=== PATIENT | male | born 1955 | race Caucasian/White ===

== ENCOUNTER 2021-02-22 11:47 | Outpatient (CLI) | payer MEDICARE | END 2021-02-22 11:48 | disposition home or self-care (01) | LOC: BICRAD 11:47 | PROVIDERS: ATTEND Internal Medicine Critical Care Medicine | DX: R06.00 Dyspnea, unspecified (principal) | CPT/HCPCS: 71046 ==

== ENCOUNTER 2022-01-10 09:41 | Inpatient (IN) | payer MEDICARE ==
[2022-01-10 10:35] LABS: ALT (SGPT) 49 U/L (8-55); AST (SGOT) 39 U/L (5-34); Albumin 3.9 g/dL (3.4-4.8); Alkaline Phosphatase 220 U/L (40-110); Anion Gap 10 mmol/L (10-20); BUN (Urea Nitrogen) 14 mg/dL (8.4-25.7); Bilirubin, Total 1.7 mg/dL (0.2-1.2); Calc. Creatinine Clearance 0 mL/min (70-130); Calcium 9.1 mg/dL (7.8-10.44); Carbon Dioxide 26 mmol/L (23-31); Chloride 109 mmol/L (98-107); Estimated GFR 64; Globulin 2.8 g/dL (2.4-3.5); Glucose 93 mg/dL (80-115); Lipase 45 U/L (8-78); Potassium 4.1 mmol/L (3.5-5.1); Protein, Total 6.7 g/dL (5.8-8.1); Sodium 141 mmol/L (136-145)
[2022-01-10 10:40] LABS: #Basophils 0.1 thou/uL (0.0-0.2); #Eosinphils 0.3 thou/uL (0.0-0.7); #Lymphocytes 1.5 thou/uL (1.20-3.40); #Monocytes 0.7 thou/uL (0.11-0.59); #Neutrophils 3.7 thou/uL (1.40-6.50); %Basophils 1.1 % (0.0-1.0); %Eosinophils 4.2 % (0.0-10.0); %Lymphocytes 23.8 % (21.0-51.0); %Monocytes 10.8 % (0.0-10.0); %Neutrophils 60.2 % (42.0-75.0); Hemoglobin 12.2 g/dL (14.0-18.0); Mean Corpuscular HGB CONC 32.3 g/dL (32.0-36.0); Mean Corpuscular Hemoglobin 27.3 pg (27.0-31.0); Mean Corpuscular Volume 84.7 fL (78.0-98.0); Mean Platelet Volume 8.6 fL (7.4-10.4); Platelet Count 290 thou/uL (130-400); RBC Distribution Width 15.4 % (11.5-14.5); Red Blood Cell (RBC) Count 4.48 mill/uL (4.70-6.10); White Blood Cell (WBC) Count 6.2 thou/uL (4.8-10.8)
[2022-01-10] MEDS ORDERED: Aspirin Chewable 81 MG TAB ONE (10:40)
[2022-01-10] MEDS ORDERED: Diltiazem 125 MG/25 ML ONE (10:40)
[2022-01-10] MEDS ORDERED: Heparin 10,000 UNITS/ 10 ML VIAL ONE (10:40)
[2022-01-10] MEDS ORDERED: Heparin 25,000 units/D5W 500 ML ONE (10:41)
[2022-01-10] MEDS ORDERED: Heparin 25,000 units/D5W 500 ML IV SCH (10:45)
[2022-01-10] MEDS ORDERED: Heparin 10,000 UNITS/ 10 ML VIAL SLOW IVP SCH (10:45)
[2022-01-10 13:37] LABS: SARS-CoV-2 NAA Rapid Test Not Detected (NotDetected)
[2022-01-10] MEDS ORDERED: Acetaminophen 650 MG Suppository PR PRN (13:42)
[2022-01-10] MEDS ORDERED: Ondansetron PF 4 MG/2 ML Vial IVP PRN (13:42)
[2022-01-10] MEDS ORDERED: Ondansetron ODT 4 MG TAB PO PRN (13:42)
[2022-01-10 13:47] LABS: Troponin I 0.036 ng/mL (< 0.028)
[2022-01-10] MEDS ORDERED: Diltiazem 125 MG in Sodium Chloride 0.9% 100 ML IVPB SCH ×2 (14:00→15:30)
[2022-01-10 17:41] VITALS: BMI 24.3
[2022-01-10 18:30] LABS: Troponin I 0.024 ng/mL (< 0.028)
[2022-01-10] MEDS: Atorvastatin Calcium 40 MG TAB PO SCH (20:40)
[2022-01-10] MEDS ORDERED: Melatonin 3 MG TAB PO PRN (21:07)
[2022-01-10] MEDS: Acetaminophen 325 MG TAB PO PRN (23:26)
[2022-01-10] MEDS ORDERED: Diltiazem HCl 125 MG in Premix Bag 1 BAG IVPB SCH (23:45)
[2022-01-11 04:30] LABS: #Neutrophils 3.6 thou/uL (1.40-6.50); %Basophils 0.9 % (0.0-1.0); %Eosinophils 4.6 % (0.0-10.0); %Neutrophils 58.6 % (42.0-75.0); Hemoglobin 10.6 g/dL (14.0-18.0); Mean Corpuscular HGB CONC 31.3 g/dL (32.0-36.0); Mean Corpuscular Hemoglobin 27.3 pg (27.0-31.0); Mean Platelet Volume 9.3 fL (7.4-10.4); Platelet Count 232 thou/uL (130-400); RBC Distribution Width 15.7 % (11.5-14.5); Red Blood Cell (RBC) Count 3.91 mill/uL (4.70-6.10); White Blood Cell (WBC) Count 6.2 thou/uL (4.8-10.8)
[2022-01-11 04:31] LABS: #Basophils 0.1 thou/uL (0.0-0.2); #Eosinphils 0.3 thou/uL (0.0-0.7); #Lymphocytes 1.6 thou/uL (1.20-3.40); #Monocytes 0.6 thou/uL (0.11-0.59)
[2022-01-11 05:03] LABS: Anion Gap 13 mmol/L (10-20); BUN (Urea Nitrogen) 12 mg/dL (8.4-25.7); Calc. Creatinine Clearance 83 mL/min (70-130); Calcium 8.5 mg/dL (7.8-10.44); Carbon Dioxide 20 mmol/L (23-31); Chloride 110 mmol/L (98-107); Estimated GFR 88; Glucose 99 mg/dL (80-115); Magnesium 2.1 mg/dL (1.6-2.6); Potassium 3.4 mmol/L (3.5-5.1); Sodium 140 mmol/L (136-145)
[2022-01-11] MEDS: Acetaminophen 325 MG TAB PO PRN ×2 (09:55→19:28)
[2022-01-11] MEDS ORDERED: Potassium Chloride 20 MEQ TAB PO SCH (11:00)
[2022-01-11 16:59] LABS: INR-International Normal Ratio 1.1; Prothrombin Time 14.4 sec (12.0-14.7)
[2022-01-11 17:00] LABS: PTT 68.9 sec (22.9-36.1)
[2022-01-11] MEDS: Atorvastatin Calcium 40 MG TAB PO SCH (20:32)
[2022-01-11] MEDS: Apixaban 5 MG TAB PO SCH (20:33)
[2022-01-11] MEDS ORDERED: Melatonin 3 MG TAB PO SCH (21:00)
[2022-01-11] MEDS ORDERED: Flecainide 50 MG TAB PO SCH ×2 (21:00)
[2022-01-12] MEDS ORDERED: Melatonin 3 MG TAB ONE (04:21)
[2022-01-12 06:46] LABS: #Eosinphils 0.2 thou/uL (0.0-0.7); #Lymphocytes 0.9 thou/uL (1.20-3.40); #Monocytes 0.7 thou/uL (0.11-0.59); #Neutrophils 4.4 thou/uL (1.40-6.50); %Basophils 0.4 % (0.0-1.0); %Eosinophils 3.7 % (0.0-10.0); %Lymphocytes 14.6 % (21.0-51.0); %Neutrophils 70.3 % (42.0-75.0); Hemoglobin 10.7 g/dL (14.0-18.0); Mean Corpuscular HGB CONC 32.2 g/dL (32.0-36.0); Mean Platelet Volume 9.2 fL (7.4-10.4); Platelet Count 231 thou/uL (130-400); RBC Distribution Width 15.6 % (11.5-14.5); Red Blood Cell (RBC) Count 3.97 mill/uL (4.70-6.10); White Blood Cell (WBC) Count 6.2 thou/uL (4.8-10.8)
[2022-01-12 06:47] LABS: Anion Gap 15 mmol/L (10-20); BUN (Urea Nitrogen) 11 mg/dL (8.4-25.7); Calc. Creatinine Clearance 75 mL/min (70-130); Calcium 8.9 mg/dL (7.8-10.44); Carbon Dioxide 20 mmol/L (23-31); Chloride 108 mmol/L (98-107); Estimated GFR 78; Glucose 101 mg/dL (80-115); Potassium 3.7 mmol/L (3.5-5.1); Sodium 139 mmol/L (136-145)
[2022-01-12] MEDS ORDERED: Dronedarone HCl 400 MG TAB PO SCH (08:00)
[2022-01-12 08:10] VITALS: BP 133/79; TEMP 97.7
[2022-01-12] MEDS: Apixaban 5 MG TAB PO SCH (09:21)
== END 2022-01-12 12:18 | disposition home or self-care (01) | DRG 310 ==
LOC: ERS 09:41 → ERHOLD 12:15 → 2NO 16:41
PROVIDERS: ADMIT Internal Medicine; ATTEND Internal Medicine
PROC: B24BZZ4 Ultrasonography of Heart with Aorta, Transesophageal (ICD-10-PCS; principal; 2022-01-11)
DX: I48.91 Unspecified atrial fibrillation (principal); Z20.822 Contact with and (suspected) exposure to COVID-19; R79.89 Other specified abnormal findings of blood chemistry; M34.1 CR(E)ST syndrome; I10 Essential (primary) hypertension; E78.5 Hyperlipidemia, unspecified; D50.9 Iron deficiency anemia, unspecified; E78.00 Pure hypercholesterolemia, unspecified; I34.0 Nonrheumatic mitral (valve) insufficiency; I25.10 Atherosclerotic heart disease of native coronary artery without angina pectoris; Z82.49 Family history of ischemic heart disease and other diseases of the circulatory system; Z79.899 Other long term (current) drug therapy
CPT/HCPCS: 36415; 71045; 80048; 80053; 82553; 83690; 83735; 83880; 84443; 84484; 85025; 85379; 85610; 85730; 93005; 93306; 94760; 96365; 96366; 96376; J1642; J1644; U0002

== ENCOUNTER 2023-04-06 05:46 | Day surgery (SDC) | payer MEDICARE ==
[2023-03-22 11:56] VITALS: BMI 25.0
[2023-04-06] MEDS ORDERED: Propofol 500 MG/50 ML VIAL ONE (06:59)
[2023-04-06] MEDS ORDERED: fentaNYL 50 mcg/mL 1 mL Vial ONE (06:59)
[2023-04-06] MEDS ORDERED: Sodium Chloride 0.9% 100 ML ONE (07:36)
[2023-04-06] MEDS ORDERED: cefTRIAXone (ROCEPHIN) 1 GM VIAL ONE (07:36)
[2023-04-06] MEDS ORDERED: Acetaminophen 500 MG TAB ONE (08:51)
== END 2023-04-06 09:48 | disposition home or self-care (01) ==
LOC: SDC 05:46
PROVIDERS: ATTEND Urology
PROC: 0VB03ZX Excision of Prostate, Percutaneous Approach, Diagnostic (ICD-10-PCS; principal; 2023-04-06)
DX: C61 Malignant neoplasm of prostate (principal); N40.0 Benign prostatic hyperplasia without lower urinary tract symptoms; R97.20 Elevated prostate specific antigen [PSA]; I48.91 Unspecified atrial fibrillation; I10 Essential (primary) hypertension; E78.5 Hyperlipidemia, unspecified; M34.1 CR(E)ST syndrome; I25.10 Atherosclerotic heart disease of native coronary artery without angina pectoris
CPT/HCPCS: 55700; J3010; G0416; J0696; J2704; J3490

== ENCOUNTER 2023-11-25 13:15 | Inpatient (IN) | payer MEDICARE ==
[2023-11-25] MEDS ORDERED: dilTIAZem 25 MG/5 ML VIAL ONE ×2 (13:39→14:33)
[2023-11-25] MEDS ORDERED: dilTIAZem 125 MG/25 ML SDV ONE (13:39)
[2023-11-25] MEDS ORDERED: Sodium Chloride 0.9% 100 ML ONE (13:40)
[2023-11-25 14:41] LABS: #Basophils 0.04 10x3/uL (0.0-0.2); %Basophils 0.5 % (0.0-1.0); %Eosinophils 4.8 % (0.0-10.0); %Lymphocytes 17.9 % (21.0-51.0); %Monocytes 8.6 % (0.0-10.0); %Neutrophils 67.5 % (42.0-75.0); Hematocrit 41.8 % (42.0-52.0); Hemoglobin 14.4 g/dL (14.0-18.0); Mean Corpuscular HGB CONC 34.4 g/dL (32.0-36.0); Mean Corpuscular Hemoglobin 30.3 pg (27.0-31.0); Mean Corpuscular Volume 87.8 fL (78.0-98.0); Mean Platelet Volume 10.4 fL (7.4-10.4); Platelet Count 299 10x3/uL (130-400); RBC Distribution Width 14.1 % (11.5-14.5); Red Blood Cell (RBC) Count 4.76 mill/uL (4.70-6.10)
[2023-11-25 14:56] LABS: Troponin I Less than 0.010 ng/mL (< 0.028)
[2023-11-25 14:57] LABS: ALT (SGPT) 89 U/L (8-55); AST (SGOT) 81 U/L (5-34); Albumin 3.9 g/dL (3.4-4.8); Alkaline Phosphatase 257 U/L (40-110); Anion Gap 15 mmol/L (10-20); BUN (Urea Nitrogen) 16 mg/dL (8.4-25.7); Bilirubin, Total 1.8 mg/dL (0.2-1.2); Calc. Creatinine Clearance 0 mL/min (70-130); Calcium 9.8 mg/dL (7.8-10.44); Carbon Dioxide 21 mmol/L (23-31); Chloride 106 mmol/L (98-107); Estimated GFR 73; Globulin 3.2 g/dL (2.4-3.5); Glucose 96 mg/dL (80-115); Potassium 3.3 mmol/L (3.5-5.1); Protein, Total 7.1 g/dL (5.8-8.1); Sodium 139 mmol/L (136-145)
[2023-11-25] MEDS ORDERED: Senokot S 8.6-50 MG TAB PO PRN (15:50)
[2023-11-25] MEDS ORDERED: Ondansetron PF 4 MG/2 ML Vial IVP PRN (15:50)
[2023-11-25] MEDS ORDERED: Calcium Carbonate 500 MG ChewTAB PO PRN (15:50)
[2023-11-25] MEDS ORDERED: Potassium Chloride 20 MEQ TAB ONE (16:17)
[2023-11-25 17:46] VITALS: BMI 24.0
[2023-11-25] MEDS: Enoxaparin 80 MG (0.8 mL) SYRINGE SC SCH (18:02)
[2023-11-25 21:06] LABS: Troponin I 0.085 ng/mL (< 0.028)
[2023-11-25 21:58] LABS: Magnesium 2.1 mg/dL (1.6-2.6); Potassium 3.7 mmol/L (3.5-5.1)
[2023-11-25] MEDS: Flecainide 50 MG TAB PO SCH (22:03)
[2023-11-25] MEDS: Atorvastatin Calcium 40 MG TAB PO SCH (22:04)
[2023-11-25] MEDS: Melatonin 3 MG TAB PO PRN (22:19)
[2023-11-25] MEDS: Acetaminophen 325 MG TAB PO PRN (23:57)
[2023-11-26 00:31] LABS: Troponin I 0.065 ng/mL (< 0.028)
[2023-11-26 05:39] LABS: #Basophils Less than 0.03 10x3/uL (0.0-0.2); %Basophils 0.3 % (0.0-1.0); %Eosinophils 5.5 % (0.0-10.0); %Lymphocytes 21.7 % (21.0-51.0); %Monocytes 7.7 % (0.0-10.0); %Neutrophils 64.3 % (42.0-75.0); Hemoglobin 13.8 g/dL (14.0-18.0); Mean Corpuscular HGB CONC 34.5 g/dL (32.0-36.0); Mean Corpuscular Hemoglobin 30.9 pg (27.0-31.0); Mean Corpuscular Volume 89.5 fL (78.0-98.0); Mean Platelet Volume 10.1 fL (7.4-10.4); Platelet Count 282 10x3/uL (130-400); RBC Distribution Width 14.1 % (11.5-14.5); Red Blood Cell (RBC) Count 4.47 mill/uL (4.70-6.10)
[2023-11-26 06:08] LABS: ALT (SGPT) 87 U/L (8-55); AST (SGOT) 65 U/L (5-34); Albumin 3.4 g/dL (3.4-4.8); Alkaline Phosphatase 245 U/L (40-110); Anion Gap 13 mmol/L (10-20); BUN (Urea Nitrogen) 13 mg/dL (8.4-25.7); Bilirubin, Total 1.4 mg/dL (0.2-1.2); Calc. Creatinine Clearance 88 mL/min (70-130); Calcium 8.6 mg/dL (7.8-10.44); Carbon Dioxide 22 mmol/L (23-31); Chloride 110 mmol/L (98-107); Estimated GFR 93; Globulin 2.7 g/dL (2.4-3.5); Glucose 97 mg/dL (80-115); Potassium 3.5 mmol/L (3.5-5.1); Protein, Total 6.1 g/dL (5.8-8.1); Sodium 141 mmol/L (136-145)
[2023-11-26] MEDS: Enoxaparin 80 MG (0.8 mL) SYRINGE SC SCH (08:14)
[2023-11-26] MEDS: Pantoprazole DR 40 MG TAB PO SCH (08:14)
[2023-11-26] MEDS: Loratadine 10 MG TAB PO SCH (08:14)
[2023-11-26] MEDS: dilTIAZem 125 MG in Sodium Chloride 0.9% 100 ML IVPB SCH (10:28)
[2023-11-26] MEDS ORDERED: Melatonin 3 MG TAB PO PRN (20:33)
[2023-11-26] MEDS: traZODone HCl 50 MG TAB PO PRN (21:37)
[2023-11-27 05:34] LABS: #Basophils 0.03 10x3/uL (0.0-0.2); %Basophils 0.4 % (0.0-1.0); %Eosinophils 5.1 % (0.0-10.0); %Lymphocytes 27.4 % (21.0-51.0); %Monocytes 9.2 % (0.0-10.0); %Neutrophils 57.5 % (42.0-75.0); Hematocrit 42.5 % (42.0-52.0); Hemoglobin 14.2 g/dL (14.0-18.0); Mean Corpuscular HGB CONC 33.4 g/dL (32.0-36.0); Mean Corpuscular Hemoglobin 30.7 pg (27.0-31.0); Mean Corpuscular Volume 91.8 fL (78.0-98.0); Mean Platelet Volume 9.9 fL (7.4-10.4); Platelet Count 277 10x3/uL (130-400); RBC Distribution Width 14.4 % (11.5-14.5); Red Blood Cell (RBC) Count 4.63 mill/uL (4.70-6.10)
[2023-11-27 06:02] LABS: ALT (SGPT) 79 U/L (8-55); AST (SGOT) 60 U/L (5-34); Albumin 3.3 g/dL (3.4-4.8); Alkaline Phosphatase 235 U/L (40-110); Anion Gap 13 mmol/L (10-20); BUN (Urea Nitrogen) 14 mg/dL (8.4-25.7); Bilirubin, Total 1.3 mg/dL (0.2-1.2); Calc. Creatinine Clearance 85 mL/min (70-130); Carbon Dioxide 19 mmol/L (23-31); Chloride 110 mmol/L (98-107); Estimated GFR 92; Globulin 2.8 g/dL (2.4-3.5); Glucose 112 mg/dL (80-115); Potassium 3.5 mmol/L (3.5-5.1); Protein, Total 6.1 g/dL (5.8-8.1); Sodium 138 mmol/L (136-145)
[2023-11-27] MEDS: Dronedarone HCl 400 MG TAB PO SCH ×2 (09:36→17:01)
[2023-11-27] MEDS: dilTIAZem CD 180 MG CAP PO SCH (09:36)
[2023-11-27 12:24] LABS: Bacteria/HPF None Seen HPF (None Seen); Bilirubin Negative (Negative); Blood, Urine 1+ (Negative); CAUTI Indications for Culture Fever or rigors; Clarity Clear (Clear); Glucose, Urine (Dipstick) Normal (Negative); Ketone, Urine Negative (Negative); Leukocyte 500 Leu/uL (Negative); Nitrite Negative (Negative); Protein, Urine (Dipstick) Negative (Neg-Trace); RBC/HPF 0-3 HPF (0-3); Specific Gravity, Urine 1.008 (1.002-1.036); Squamous Epithelial None Seen HPF (0-3); Urobilinogen Normal mg/dL (Less than 2); WBC/HPF Greater than 50 HPF (0-3); pH, Urine 6.5 (5.0-9.0)
[2023-11-27 12:29] LABS: Urine Culture Reflex Yes Yes
[2023-11-28] MEDS ORDERED: Norepinephrine 4 MG/4 ML VIAL ONE ×2 (07:03→10:08)
[2023-11-28] MEDS ORDERED: Lidocaine 1% PF 5 ML VIAL ONE (10:14)
[2023-11-28] MEDS ORDERED: PROPOFOL 200 MG/20 ML VIAL ONE (10:14)
[2023-11-28] MEDS ORDERED: Hydrocortisone 1% Cream 30 GM TUBE TOP SCH (11:30)
[2023-11-28] MEDS: cefTRIAXone\\ROCEPHIN 1 GM in Sodium Chloride 0.9% 100 ML IVPB SCH (14:19)
[2023-11-28] MEDS: Apixaban 5 MG TAB PO SCH (21:10)
[2023-11-29] MEDS: dilTIAZem CD 120 MG CAP PO SCH (09:21)
[2023-11-29] MEDS: dilTIAZem CD 180 MG CAP PO SCH (09:26)
[2023-11-29 17:37] VITALS: BP 138/84; TEMP 98.5
== END 2023-11-29 17:34 | disposition home or self-care (01) | DRG 309 ==
LOC: ERS 13:15 → SUATTDRO 13:15 → 2NO 15:51
PROVIDERS: ADMIT Internal Medicine; ATTEND Hospitalist
PROC: B24BZZ4 Ultrasonography of Heart with Aorta, Transesophageal (ICD-10-PCS; principal; 2023-11-28)
PROC: 5A2204Z Restoration of Cardiac Rhythm, Single (ICD-10-PCS; 2023-11-28)
PROC: 3E033XZ Introduction of Vasopressor into Peripheral Vein, Percutaneous Approach (ICD-10-PCS; 2023-11-28)
PROC: 3E03329 Introduction of Other Anti-infective into Peripheral Vein, Percutaneous Approach (ICD-10-PCS; 2023-11-28)
DX: I48.0 Paroxysmal atrial fibrillation (principal); N39.0 Urinary tract infection, site not specified; T83.511A Infection and inflammatory reaction due to indwelling urethral catheter, initial encounter; E78.00 Pure hypercholesterolemia, unspecified; M34.1 CR(E)ST syndrome; I10 Essential (primary) hypertension; E87.6 Hypokalemia; N40.1 Benign prostatic hyperplasia with lower urinary tract symptoms; I25.10 Atherosclerotic heart disease of native coronary artery without angina pectoris; R74.01 Elevation of levels of liver transaminase levels; Z79.01 Long term (current) use of anticoagulants; Z79.899 Other long term (current) drug therapy; Z90.89 Acquired absence of other organs; Z98.890 Other specified postprocedural states
CPT/HCPCS: 36415; 71045; 80053; 81001; 83735; 83880; 84484; 85025; 86140; 87040; 87077; 87086; 87149; 87186; 92960; 93005; 93010; 93312; 96374; 96376; J0696; J1650; J2704; J3490

== ENCOUNTER 2025-02-01 22:38 | Emergency (ER) | payer MEDICARE ==
[2025-02-01 23:08] LABS: #Basophils 0.03 10x3/uL (0.0-0.2); #Eosinophils 0.28 10x3/uL (0.0-0.7); #Monocytes 0.73 10x3/uL (0.11-0.59); #Neutrophils 4.79 10x3/uL (1.40-6.50); %Basophils 0.4 % (0.0-1.0); %Eosinophils 3.6 % (0.0-10.0); %Lymphocytes 24.6 % (21.0-51.0); %Monocytes 9.3 % (0.0-10.0); %Neutrophils 61.3 % (42.0-75.0); Hematocrit 39.9 % (42.0-52.0); Hemoglobin 13.1 g/dL (14.0-18.0); Mean Corpuscular Hemoglobin 28.7 pg (27.0-31.0); Mean Corpuscular Volume 87.5 fL (78.0-98.0); Platelet Count 262 10x3/uL (130-400); Red Blood Cell (RBC) Count 4.56 mill/uL (4.70-6.10); White Blood Cell (WBC) Count 7.81 10x3/uL (4.8-10.8)
[2025-02-01 23:32] LABS: ALT (SGPT) 78 U/L (Less than 45); AST (SGOT) 66 U/L (11-34); Albumin 4.0 g/dL (3.1-4.5); Alkaline Phosphatase 283 U/L (40-110); Anion Gap 17 mmol/L (10-20); BUN (Urea Nitrogen) 17 mg/dL (8.4-25.7); Bilirubin, Total 1.1 mg/dL (0.3-1.2); Calc. Creatinine Clearance 0 mL/min (70-130); Calcium 9.4 mg/dL (7.8-10.44); Carbon Dioxide 22 mmol/L (23-31); Chloride 108 mmol/L (98-107); Globulin 3.3 g/dL (2.4-3.5); Glucose 105 mg/dL (83-110); Potassium 3.7 mmol/L (3.5-5.1); Sodium 143 mmol/L (136-145)
[2025-02-01] MEDS ORDERED: dilTIAZem 25 MG/5 ML VIAL ONE (23:32)
[2025-02-01 23:33] LABS: Troponin I 0.017 ng/mL (< 0.028)
[2025-02-02 00:38] LABS: Bacteria/HPF None Seen HPF (None Seen); CAUTI Indications for Culture Pelvic or flank pain; Glucose, Urine (Dipstick) Normal (Negative); Leukocyte Negative Leu/uL (Negative); Protein, Urine (Dipstick) Negative (Neg-Trace); RBC/HPF 0-3 HPF (0-3); Specific Gravity, Urine 1.006 (1.002-1.036); WBC/HPF 0-3 HPF (0-3)
[2025-02-02 00:39] LABS: Urine Culture Reflex No No
[2025-02-02] MEDS ORDERED: dilTIAZem 30 MG TAB PO SCH (01:30)
== END 2025-02-02 02:20 | disposition home or self-care (01) ==
LOC: ERS 22:38
DX: I48.91 Unspecified atrial fibrillation (principal); I10 Essential (primary) hypertension; E78.5 Hyperlipidemia, unspecified; R29.700 NIHSS score 0; Z79.899 Other long term (current) drug therapy; Z79.01 Long term (current) use of anticoagulants
CPT/HCPCS: 71045; 80053; 81001; 83880; 84484; 85025; 93005; 94760

== ENCOUNTER 2025-02-02 19:59 | Inpatient (IN) | payer MEDICARE ==
[2025-02-02 20:35] LABS: #Basophils Less than 0.03 10x3/uL (0.0-0.2); #Eosinophils 0.15 10x3/uL (0.0-0.7); #Monocytes 0.70 10x3/uL (0.11-0.59); #Neutrophils 5.98 10x3/uL (1.40-6.50); %Basophils 0.2 % (0.0-1.0); %Eosinophils 1.8 % (0.0-10.0); %Lymphocytes 18.0 % (21.0-51.0); %Monocytes 8.3 % (0.0-10.0); %Neutrophils 71.2 % (42.0-75.0); Hematocrit 39.5 % (42.0-52.0); Hemoglobin 13.0 g/dL (14.0-18.0); Mean Corpuscular Hemoglobin 28.9 pg (27.0-31.0); Mean Corpuscular Volume 87.8 fL (78.0-98.0); Platelet Count 286 10x3/uL (130-400); Red Blood Cell (RBC) Count 4.50 mill/uL (4.70-6.10); White Blood Cell (WBC) Count 8.40 10x3/uL (4.8-10.8)
[2025-02-02 20:46] LABS: ALT (SGPT) 58 U/L (Less than 45); AST (SGOT) 42 U/L (11-34); Albumin 3.5 g/dL (3.1-4.5); Alkaline Phosphatase 247 U/L (40-110); Anion Gap 15 mmol/L (10-20); BUN (Urea Nitrogen) 15 mg/dL (8.4-25.7); Bilirubin, Total 1.4 mg/dL (0.3-1.2); Calc. Creatinine Clearance 0 mL/min (70-130); Calcium 8.9 mg/dL (7.8-10.44); Carbon Dioxide 24 mmol/L (23-31); Chloride 108 mmol/L (98-107); Globulin 2.9 g/dL (2.4-3.5); Glucose 117 mg/dL (83-110); Potassium 3.5 mmol/L (3.5-5.1); Sodium 143 mmol/L (136-145)
[2025-02-02 20:51] LABS: Troponin I 0.115 ng/mL (< 0.028)
[2025-02-02] MEDS ORDERED: Acetaminophen 325 MG TAB PO PRN (22:33)
[2025-02-02] MEDS ORDERED: Ondansetron PF 4 MG/2 ML Vial IVP PRN (22:33)
[2025-02-02] MEDS ORDERED: Melatonin 3 MG TAB PO PRN (22:45)
[2025-02-02] MEDS ORDERED: Melatonin 3 MG TAB PO SCH (22:45)
[2025-02-03] LABS: Troponin I 0.107 ng/mL (< 0.028)
[2025-02-03 02:47] LABS: Troponin I 0.103 ng/mL (< 0.028)
[2025-02-03 04:14] VITALS: BMI 24.8
[2025-02-03] MEDS ORDERED: Diltiazem HCl/D5W 125 MG in Premix 1 BAG IVPB SCH ×2 (04:15→04:45)
[2025-02-03] MEDS: PNEUMOC 20-VAL CONJ-DIP CRM/PF 0.5 ML SYRINGE IM ONE (08:30)
[2025-02-03] MEDS: Apixaban 5 MG TAB PO SCH (08:31)
[2025-02-03 11:47] LABS: #Basophils 0.03 10x3/uL (0.0-0.2); #Eosinophils 0.13 10x3/uL (0.0-0.7); #Monocytes 0.72 10x3/uL (0.11-0.59); #Neutrophils 5.07 10x3/uL (1.40-6.50); %Basophils 0.4 % (0.0-1.0); %Eosinophils 1.7 % (0.0-10.0); %Lymphocytes 21.5 % (21.0-51.0); %Monocytes 9.4 % (0.0-10.0); %Neutrophils 66.5 % (42.0-75.0); Hematocrit 43.5 % (42.0-52.0); Hemoglobin 13.8 g/dL (14.0-18.0); Mean Corpuscular Hemoglobin 28.2 pg (27.0-31.0); Mean Corpuscular Volume 88.8 fL (78.0-98.0); Platelet Count 273 10x3/uL (130-400); Red Blood Cell (RBC) Count 4.90 mill/uL (4.70-6.10); White Blood Cell (WBC) Count 7.63 10x3/uL (4.8-10.8)
[2025-02-03 12:18] VITALS: TEMP 98.2
[2025-02-03 12:18] LABS: Anion Gap 16 mmol/L (10-20); BUN (Urea Nitrogen) 13 mg/dL (8.4-25.7); Calc. Creatinine Clearance 81 mL/min (70-130); Calcium 8.8 mg/dL (7.8-10.44); Carbon Dioxide 22 mmol/L (23-31); Chloride 109 mmol/L (98-107); Glucose 90 mg/dL (83-110); Potassium 3.4 mmol/L (3.5-5.1); Sodium 144 mmol/L (136-145)
[2025-02-03] MEDS ORDERED: PROPOFOL 20 ML ONE (12:37)
[2025-02-03] MEDS ORDERED: GLYCOPYRROLATE/PF 0.2 MG/ML VIAL ONE (12:39)
[2025-02-03] MEDS ORDERED: Lidocaine 1% (PF) 30 ML VIAL ONE (14:00)
[2025-02-03 15:40] VITALS: BP 137/68
== END 2025-02-03 19:30 | disposition home or self-care (01) | DRG 309 ==
LOC: ERS 19:59 → PCU 22:11
PROVIDERS: ADMIT Internal Medicine; ATTEND Family Medicine
PROC: 5A2204Z Restoration of Cardiac Rhythm, Single (ICD-10-PCS; principal; 2025-02-03)
DX: I48.91 Unspecified atrial fibrillation (principal); I24.89 Other forms of acute ischemic heart disease; M34.1 CR(E)ST syndrome; E78.5 Hyperlipidemia, unspecified; I10 Essential (primary) hypertension; F10.90 Alcohol use, unspecified, uncomplicated; R74.01 Elevation of levels of liver transaminase levels; I45.19 Other right bundle-branch block; Z79.899 Other long term (current) drug therapy; Z98.890 Other specified postprocedural states; Z79.01 Long term (current) use of anticoagulants; R29.700 NIHSS score 0
CPT/HCPCS: 36415; 71045; 80048; 80053; 81001; 83880; 84484; 85025; 92960; 93005; 93010; 94760; 96365; 96366; 96374; J2704; J3490